=== PATIENT | male | born 1955 ===

== ENCOUNTER 2019-11-18 20:44 | Emergency (ER) | payer BC ==
[~2019-11-18] VITALS: Ht 170.2 cm; Wt 93.8 kg
[2019-11-18 20:53] VITALS: BP 187/97
--- NOTE | 2019-11-18 21:01 | NUR ---
DIRECTOR BUSINESS INTELLIGENCE: EKG DONE IN TRIAGE.
--- NOTE | 2019-11-18 21:22 | NUR ---
MED REQUESTED FROM PHARMACY
[2019-11-18] MEDS ORDERED: INSULIN GLARGINE 100 UNITS/ML, PEN SQ-INSULIN ONE (21:30)
--- NOTE | 2019-11-18 21:30 | NUR ---
Medicated per emar Reviewed precautions
== END 2019-11-18 21:50 | disposition home or self-care (01) ==
LOC: ED 21:28
DX: E11.65 Type 2 diabetes mellitus with hyperglycemia (principal); Z76.0 Encounter for issue of repeat prescription; R94.31 Abnormal electrocardiogram [ECG] [EKG]; I10 Essential (primary) hypertension; Z79.4 Long term (current) use of insulin; Z86.73 Personal history of transient ischemic attack (TIA), and cerebral infarction without residual deficits
CPT/HCPCS: 93005; 99283; J1815